=== PATIENT | female | born 1945 | race Caucasian/White ===

== ENCOUNTER 2023-04-19 20:56 | Emergency (ER) | payer MEDICARE, OTHER ==
[~2023-04-19] VITALS: Ht 167.6 cm; Wt 102.0 kg
[2023-04-19] VITALS (9 sets, daily range): BP systolic 150–197; BP diastolic 73–113
[2023-04-19] MEDS ORDERED: LEVOTHYROXIN75 MC1 PO (21:30)
[2023-04-19] MEDS ORDERED: BISOPRL/HC5 MG/6.25 PO (21:31)
[2023-04-19] MEDS ORDERED: MELOXICAM15 MG PO (21:32)
[2023-04-19] MEDS ORDERED: CLARITIN10 M1 PO (21:32)
[2023-04-19 22:17] LABS: URINE BILIRUBIN - DIPSTICK Negative (NEGATIVE); URINE BLOOD DIPSTICK Negative (NEGATIVE); URINE GLUCOSE - DIPSTICK Negative (NEGATIVE); URINE KETONE Negative (NEGATIVE); URINE NITRITE - DIPSTICK Negative (Negative); URINE PROTEIN - DIPSTICK Negative (NEG-TRACE); URINE UROBILINOGEN - DIPSTICK 0.2 E.U./dL (0.2)
[2023-04-19 22:18] LABS: BASO% 0.6 % (0-3); HEMOGLOBIN 14.4 g/dl (12.0-16.0); IMMATURE GRANULOCYTES 0.2 % (0.0-5.0); LYMPH% 32.3 % (15-41); MEAN CELL VOLUME 90.3 fL CALC (80.0-100.0); MEAN CORPUSCULAR HGB 29.6 pG CALC (26.0-32.0); MEAN CORPUSCULAR HGB CONC 32.7 g/dL CAL (32.0-36.0); MONO% 9.2 % (2-13); NEUT# 5.12 thou/uL (2.00-7.15); NEUT% 54.7 % (42-76); RED BLOOD COUNT 4.87 mill/uL (4.20-5.60); RED CELL DISTRI WIDTH 12.1 % (11.5-15.5)
[2023-04-19 22:19] LABS: URINE COLOR Yellow; URINE LEUK ESTERASE Small (NEGATIVE)
[2023-04-19 22:29] LABS: ALBUMIN 4.5 g/dL (3.2-5.0); ALKALINE PHOSPHATASE 118 u/l (38-126); ANION GAP 11 (6-22 (CALC)); BILIRUBIN, TOTAL 1.2 mg/dL (0.02-1.3); BUN 24 mg/dL (8-23); BUN/CREATININE RATIO 26 (12-20 (CALC)); CARBON DIOXIDE 25 mmol/l (22-30); CHLORIDE 108 mmol/l (95-108); CREATININE 0.9 mg/dL (0.5-1.0); GFR FOR AFR.AMER. > 60 ML/MIN (>=60 (CALC)); GFR OTHER RACES > 60 ML/MIN (>=60 (CALC)); POTASSIUM 4.2 mmol/l (3.5-5.1); SGOT/AST 47 u/l (9-36); SODIUM 139 mmol/l (137-146); TOTAL PROTEIN 7.6 g/dL (6.3-8.2)
[2023-04-19 22:39] LABS: ACT PARTIAL THROMBO TIME 24.1 SECONDS (20.0-32.5); INTERNATIONAL NORMALIZED RATIO 1.1 RATIO (0.7-1.3); PROTHROMBIN TIME 10.4 SECONDS (9.0-12.5)
[2023-04-19 23:00] LABS: D-DIMER 9.79 mg/L (0.19-0.60)
[2023-04-20] VITALS (10 sets, daily range): BP systolic 139–176; BP diastolic 77–97
== END 2023-04-20 03:15 | disposition short-term general hospital (02) ==
LOC: ED 20:56
PROVIDERS: Family Medicine
DX: I26.99 Other pulmonary embolism without acute cor pulmonale (principal); R79.89 Other specified abnormal findings of blood chemistry; I10 Essential (primary) hypertension; R06.02 Shortness of breath
CPT/HCPCS: J1650; Q9967